=== PATIENT | female | born 1970 | race African-American/Black ===

== ENCOUNTER 2017-09-17 08:06 | Emergency (ER) | payer OTHER ==
[2017-09-17] MEDS: KETOROLAC 60 MG INJ IM (09:17)
[2017-09-17] MEDS: DIAZEPAM 5 MG TAB PO (10:04)
== END 2017-09-17 10:35 | disposition home or self-care (01) ==
LOC: FTE 08:06
DX: M54.5 Low back pain (principal)
CPT/HCPCS: 72100; 96372; 99284-25